=== PATIENT | female | born 1950 | race Caucasian/White ===

== ENCOUNTER 2019-12-15 09:32 | Day surgery (SDC) | payer MEDICARE, SELFPAY ==
[2019-12-06 09:48] VITALS: BMI 24.8
[2019-12-15] VITALS (19 sets, daily range): BP systolic 93–120; BP diastolic 57–76; PULSE 49–87; RESP 9–19; TEMP 36.4–37; O2SAT 94–99; BMI 24.8
--- NOTE | 2019-12-15 | DI.RAD.S_ITS ---
PROCEDURE: XR HIP W PEL IF DONE RT 2V INDICATIONS: RIGHT SABA TECHNIQUE: 4 fluoroscopic views of the hip were acquired. COMPARISON: [facility], [place], XR HIP W PEL IF DONE RT 2V, 12/15/2019, 15:14. FINDINGS: Bones: Right hip total arthroplasties in the expected position. No fractures or dislocations seen. IMPRESSION: Fluoroscopic views of the right total hip arthroplasty. Dictated by: Kuldeep Moscoso M.D. on 12/15/2019 at 16:37 Approved by: Kuldeep Moscoso M.D. on 12/15/2019 at 16:38
--- NOTE | 2019-12-15 06:00 | DI.RAD.S_ITS ---
PROCEDURE: XR HIP W PEL IF DONE RT 2V INDICATIONS: post op films TECHNIQUE: AP pelvis and lateral view of the right hip acquired. COMPARISON: [facility], CR, XR PELVIS WITH BILATERAL LATERAL HIPS, 09/07/2019, 14:13. [facility], CR, XR HIP W PEL IF DONE RT 2V, 12/15/2019, 13:35. FINDINGS: Bones: Patient is status post right hip arthroplasty, with hardware components in expected positions. The hip joint appears congruent. The visualized bony structures appear intact. Note is made of severe left hip joint degeneration. Soft tissues: Overlying postoperative changes are noted. No suspicious soft tissue densities. IMPRESSION: Right hip prosthesis in anatomic alignment. Dictated by: Tay Gramajo M.D. on 12/15/2019 at 17:50 Approved by: Tay Gramajo M.D. on 12/15/2019 at 17:51
[2019-12-15] MEDS: LACTATED RINGERS 1,000 ML 42 ML IV ×2 (10:37→13:48)
[2019-12-15] MEDS: VANCOMYCIN 1,000 MG/200 ML PIGGYBACK 200 MG IV ×2 (10:37→12:57)
[2019-12-15] MEDS: ACETAMINOPHEN 325 MG TABLET 975 MG PO (10:37)
[2019-12-15] MEDS: CELECOXIB 200 MG CAPSULE PO (10:37)
--- NOTE | 2019-12-15 11:33 | P.OP_ITS ---
Operative Date/Time/Diagnoses Date of procedure: 12/15/19 Time of procedure: 11:54 Pre-op diagnosis: Severe right hip osteoarthritis Post-op diagnosis: same Procedure & Clinicians Procedure: Right total hip arthroplasty anterior approach Same procedure as scheduled: Yes Indications: The patient has had progressively worsening right hip pain with radiographic changes consistent with arthritis. Non-operative management has failed and the patient has requested total hip replacement. The risks, benefits and alternatives to surgery were discussed with the patient prior to proceeding. Risks discussed included, but were not limited to, failure to relieve pain, leg length discrepancy, dislocation, stiffness, infection, nerve damage, deep venous thrombosis, pulmonary embolism, stroke, coma, heart attack, permanent paralysis and , as well as the potential need for eventual revision of the prosthetic. Surgeon: Kiana Morales Programmable Logic Controller Assembler: Calli Ball Anesthesia Type: General and Spinal Operative Notes Findings: Severe right hip osteoarthritis Closure Type: primary Specimen(s): none sent Prosthetic devices, grafts, tissues, transplants, or devices: Morales and Nephew 56 mm R3, size 8 stem anthology standard offset, 36 by + 0 Oxinium head, one 15 mm screw Estimated Blood Loss (mL): 250 Blood products transfused: none Procedure in detail: The patient was brought to the operating room. Patient was carefully positioned in the supine position. Time-out was performed and antibiotics were given. Anesthesia was induced. She was positioned in the on the table in order to allow hyperextension of the hip. The right lower extremity was prepped and draped in a standard sterile fashion. An anterior right hip incision was made 1 fingerbreadth lateral to the anterior superior iliac spine and extended distally towards the greater trochanter. Dissection was carried out through skin and subcutaneous tissues. The skin and subcutaneous tissues were carefully injected with Lidocaine with epi. Superficial hemostasis was achieved. The fascia over the tensor fascia mauricio was defined and incised with a knife. Two Allis clamps were used to grasp the fascia. Tensor fascia mauricio was retracted laterally. A gelpi retractor was placed. Dissection was carried out down along the neck. The circumflex vessels were carefully identified and cauterized with the Aqua Mantis. There was good visualization of the femoral neck. A Cobra was placed superior to the neck and the gluteus fibers were carefully stripped from that superior aspect of the capsule. A 2nd retractor was placed along the inferior aspect of the neck. The rectus insertion along the capsule was partially released. A 3rd retractor that was then gently placed over the rim of the acetabulum under the rectus. Capsule was carefully incised and released from the intertrochanteric line circumferentially superior to the mid sagittal line and inferiorly to the mid sagittal line until the lesser trochanter was palpable. A tag stitch was placed both in the superior and inferior limb of the capsular insertion. Along the acetabulum capsule was also released up to the mid sagittal 12:00 position. A portion of the labrum was resected. A saw was used to perform an osteotomy at the level of the intertrochanteric line and the junction of the superior femoral neck leaving approximately 1 finger breath of residual inferior neck above the lesser trochanter. A 2nd cut was made along the femoral neck at the base of the head and a napkin ring of neck was removed. Corkscrew was placed in the femoral head and the head was removed without difficulty. Retractors were then repositioned around the acetabulum. Residual labrum was resected and additional osteophytes were removed. A reamer that was 4 mm below the templated size was placed by hand in the acetabulum and it was reamed to centralize the acetabulum. It was then reamed up to 2 under the templated size and fluoroscopy was brought in to confirm the position of the reaming and depth of reaming. I reamed 1 under the anticipated size and touched the rim with line to line reaming. A trial cup was placed and noted that it was appropriately sized and fluoroscopy confirmed position and depth. The component was open and inserted without difficulty fluoroscopic imaging was used to confirm that the cup had been adequately seated and was well positioned. It was further stabilized with a single 6.5 mm screw. Neutral poly liner was placed. The cup was tested and noted to be stable. Attention was then directed to the femur. The femur was gently hyperextended additional capsular release was performed as needed in order to allow adequate visualization of the proximal femur with elevation of the femur. Patient was placed in a hyperextended slightly adducted position with maximum external rotation. Box osteotome was used to check for any residual neck as well as sclerotic bone along the trochanter. [place] pepper was placed in the femur. Additional broaching was performed. Canal finder was used to determine the alignment of the canal and position. Size 1 broach was placed. The canal was then appropriately broached up to the templated size as long as there was zeny quate stability of the broach and serial advancement of the broach without excessive impingement. Specific attention was directed at avoiding varus attempting to direct the distal aspect of the broach more anteriorly and avoiding excessive anteversion. Trial reduction showed acceptable range of motion, good stability, no posterior impingement, islam of leg length and appropriate lateral shuck. I also hyperflexed the hip and checked that there was no impingement anteriorly and there was good stability with flexion, adduction and internal rotation. Marcaine and Exparel were injected. The stem was placed without difficulty. Repeat trial reduction and x-ray showed acceptable overall position, length, and no evidence of the femoral fracture. Final head was placed. Wound was meticul ously irrigated with normal saline. The hip was reduced and additional Exparel and Marcaine were injected. The capsule was closed with interrupted nonabsorbable sutures. The fascia of the tensor was closed with interrupted and running Vicryl. No drain was placed. Any tensor fascia mauricio muscle that appeared to be contused or injured which was a minimal amount was carefully resected. Capsule around the tensor was injected with Exparel and Marcaine. The skin was closed with barbed stitches for the subcutaneous tissue and skin. We also used surgical glue. The wound was dressed sterilely. Brief Betadine soak was also used and was meticulously irrigated with normal saline. Patient was transferred to recovery room in satisfactory condition. Complications: none Post-operative Condition: stable Disposition: Acute Care Plan for aftercare: The patient will be maintained on a standard total hip replacement protocol with weight bearing as tolerated and anterior hip precautions. The patient will receive Aspirin and sequential compression devices for DVT prophylaxis. The patient will be discharged home when safe for the home environment.
--- NOTE | 2019-12-15 11:33 | PM.PREOP ---
Pre-operative Note Interval Note History & Physical reviewed/Exam performed by Physician: Yes Changes to H&P: No
[2019-12-15] MEDS: CEFAZOLIN 2 GM/100 ML FROZ.PIGGY IV ×2 (12:10→20:56)
[2019-12-15] MEDS: TRANEXAMIC ACID 1,000 MG VIAL 1000 MG INJ (12:20)
--- NOTE | 2019-12-15 12:52 | SUR.OPER ---
Supine on padded [place] table with bilateral legs secured in padded positioning boots and suspended in positioning spars, operative leg in traction per surgeon. Head on one pillow. Arm on non-operative side secured on padded armboard <90 degrees abduction. Arm on operative side padded and resting across chest then secured with tape over sheet. Padded perineal post in place per surgeon.
[2019-12-15] MEDS: BUPIVACAINE LIPOSOME 266 MG/20 ML VIAL INJ (14:29)
[2019-12-15] MEDS: BUPIVACAINE 0.25% W/ EPI 30 ML VIAL 60 ML INJ (14:30)
[2019-12-15] MEDS: hydrOXYzine 50 MG/ML INJ 25 MG IM (15:29)
[2019-12-15] MEDS: HYDROMORPHONE 2 MG INJ IV ×2 (15:29→15:49)
--- NOTE | 2019-12-15 16:06 | SUR.PHASEI ---
Patient A/O. OSORIO's x 4. medicated for c/o pain. Denies nausea and tolerating po.
[2019-12-15] MEDS: IBUPROFEN 400 MG TABLET PO ×2 (17:12→21:02)
[2019-12-15] MEDS: OXYCODONE IR 5 MG TABLET PO ×2 (17:13→21:03)
[2019-12-15] MEDS: LACTATED RINGERS 1,000 ML 125 ML IV (17:14)
--- NOTE | 2019-12-15 19:27 | PC.ADMIT ---
[email or web address] [facility] Admission Note: The patient,Tita Zimmer,69 y/o, was given written information regarding hospital policies, unit procedures and contact persons. 1640: Pt arrived to unit from PACU. A/O, VSS, Pt states pulse always runs slow. Drsg C/D/I. No drains. Medicating per mar for post-op pain. Ambulated to bathroom for void attempt. Steady on feet with fww. Unable to void reattempt again. Oriented to room and call system. Bed alarm placed on for safety. Patient's smoking status: Former smoker. Vital Signs - 8 hr 12/15/19 15:10 12/15/19 15:19 12/15/19 15:25 Temperature 98.6 F Pulse Rate 87 77 68 Respiratory Rate 15 19 11 L Blood Pressure 99/63 96/57 L 103/63 Pulse Oximetry 96 95 94 12/15/19 15:34 12/15/19 15:39 12/15/19 15:44 Temperature Pulse Rate 61 57 L 60 Respiratory Rate 13 10 L 19 Blood Pressure 104/64 102/63 93/57 L Pulse Oximetry 97 95 98 12/15/19 15:45 12/15/19 15:54 12/15/19 16:05 Temperature Pulse Rate 58 L 59 L 56 L Respiratory Rate 9 L 12 13 Blood Pressure 93/57 L 106/64 103/62 Pulse Oximetry 94 99 99 12/15/19 16:14 12/15/19 16:42 12/15/19 17:00 Temperature 97.5 F L Pulse Rate 60 54 L 49 L Respiratory Rate 12 17 Blood Pressure 107/64 105/63 94/60 Pulse Oximetry 98 99 12/15/19 17:30 Temperature Pulse Rate 57 L Respiratory Rate Blood Pressure 109/65 Pulse Oximetry
[2019-12-15] MEDS: ASPIRIN EC 81 MG TABLET PO (21:02)
[2019-12-15] MEDS: ACETAMINOPHEN 325 MG TABLET 650 MG PO (21:02)
[2019-12-15] MEDS: DOCUSATE 100 MG CAPSULE PO (21:02)
[2019-12-16 01:20] VITALS: BP 120/48; PULSE 96; RESP 17; TEMP 36.8; O2SAT 98
[2019-12-16] MEDS: IBUPROFEN 400 MG TABLET PO ×4 (01:22→14:42)
[2019-12-16] MEDS: LACTATED RINGERS 1,000 ML 125 ML IV (01:43)
--- NOTE | 2019-12-16 02:05 | PC.NURSE ---
Addendum entered by Geetha Crowell R.N. 12/16/19 06:37: Additional note: when ambulating earlier states she feels as though the right leg is now longer than left leg Addendum entered by Geetha Crowell R.N. 12/16/19 06:19: Medicated earlier with scheduled Ibuprofen and now states pain has worsened and currently 6/10; medicated with Oxycodone and assisted to reposition onto right side. Original Note: Patient is alert and oriented. Breath sounds CTA with RA sat of 98%. HRR. Denies nausea. BT present and states she is passing flatus. Has some dribbling/incontinence when standing up so provided with peripad; states dribbling is a chronic problem but denies dysuria, frequency or urgency. Dressing to anterior right hip CDI. CMS intact but only able to lift right leg off bed slightly and with effort. States pain was 2/10 upon waking but increased to 6/10 after being out of bed; declined narcotic pain medication and would only take the scheduled Ibuprofen; provided with ice pack. Reviewed anterior hip precautions with patient. Able to move self in bed and is up with walker and SBA although needs reminders to slow down when walking. Wearing bilateral calf SCD's. Fall risk score is moderate; bed alarm is activated for safety.
[2019-12-16] MEDS: CEFAZOLIN 2 GM/100 ML FROZ.PIGGY IV (04:38)
[2019-12-16 05:00] VITALS: BP 92/50; PULSE 69; RESP 17; TEMP 36.6; O2SAT 97
[2019-12-16] MEDS: OXYCODONE IR 5 MG TABLET PO ×3 (06:15→14:42)
[2019-12-16 06:26] LABS: Hematocrit 30.2 % (36-46)
--- NOTE | 2019-12-16 08:33 | P.PN_ITS ---
Subjective Subjective Date Patient Seen: 12/16/19 Time Patient Seen: 07:30 Interval history: POD #[address] Morales. No acute events overnight. Patient states she feels very tired. Complains of mild-moderate pain in her right hip. Is voiding without difficulty or assistance. Ambulating well with walker 1- assist. Denies fever, chills, shortness of breath, dry cough, chest pain Exam Vital Signs (past 8 hours): - 12/16/19 01:20 12/16/19 05:00 Temperature 98.3 F 97.8 F Pulse Rate 96 H 69 Respiratory Rate 17 17 Blood Pressure 120/48 L 92/50 L Pulse Oximetry 98 97 Oxygen Delivery Method Room Air Oxygen Flow Rate 0 Narrative Exam Narrative: 69 year old female is laying comfortably in bed, in no apparent distress. A&Ox3. Dressing CDI, SCDs in place, IV in place. Able to actively dorsiflex/plantar flex BL. Calves warm, soft, compressible, non tender to palpation BL. Sensory function grossly intact to light touch in LE BL. Dorsalis pedis 1+ BL. Objective Labs Result Diagrams: 12/16/19 06:00 Labs: Laboratory Results - last 24 hr 12/16/19 06:00 Hgb 10.0 L Hct 30.2 L Assessment & Plan Post-op Postoperative Procedures: Procedures Operation Date: 12/15/19 11:45 Actual Procedures Side Surgeon p Total Hip Arthroplasty/Anterior Approach Right Kiana Morales MD Postoperative day: 1 Postoperative status: doing well Postoperative plan: discharge Postoperative plan narrative: Patient to discharge home pending PT clearance Continue current pain management SCDs and ASA 81mg BID for DVT prophylaxis Follow up w clinic in 2 weeks Begin outpatient PT in 1 week Time Spent With Patient Time with patient: less than 15 minutes
[2019-12-16 08:38] VITALS: BP 79/50; PULSE 67; RESP 18; TEMP 37.1; O2SAT 98
[2019-12-16 08:42] VITALS: BP 87/55; PULSE 62
--- NOTE | 2019-12-16 08:53 | PC.NURSE ---
Addendum entered by Shaylee Gamez R.N. 12/16/19 12:44: NS 500ml bolus started at 0950. Now completed, Pt wanted to sleep, BP rechecked manually by another RN at 1140 for 94/55. Will monitor. Addendum entered by Shaylee Gamez R.N. 12/16/19 09:12: Per Jatinder, PT, pt ambulated in [place] short distance, felt dizzy and nauseated, BP 80's over 50's, pt back to bed and stated feeling better once in bed. 500 ml NS bolus will be given as pt was symptomatic Addendum entered by Shaylee Gamez R.N. 12/16/19 09:01: pt states she normal has a lower BP and pulse when at home. Original Note: Day Shift- Pt A&OX4, able to make needs known using call light. Rates no pain with rest, 3/10 with movement to right hip surgery site. Right anterior hip aquacel dressing CDI. PPP, Pt denies numbness of tingling. BP taken while pt in bed in supine, HOB slightly elevated. BP taken on right arm, cuff size fits well. BP 79/50, pulse 67. Second reading taken 4 mins apart was 87/55, pulse 62. Spoke with MARYA Starks at 0845 and made aware. If pt asymptomatic while working with PT, give NS 500ml bolus, otherwise monitor, encourage po fluids.
[2019-12-16] MEDS: ACETAMINOPHEN 325 MG TABLET 650 MG PO ×2 (09:19→14:43)
[2019-12-16] MEDS: ASPIRIN EC 81 MG TABLET PO (09:19)
[2019-12-16] MEDS: SODIUM CHLORIDE 0.9% 500 ML 1000 ML IV (09:20)
[2019-12-16] MEDS: DOCUSATE 100 MG CAPSULE PO (09:20)
--- NOTE | 2019-12-16 10:05 | PT.IIE ---
Current Diagnoses Bilateral primary osteoarthritis of hip (12/15/19) Surgery Performed Operation Date: 12/15/19 11:45 Actual Procedures p Total Hip Arthroplasty/Anterior Approach(Right) - Kiana Morales MD Surgical History (Last Updated 12/06/19 @ 10:16 by Maritza Mcgowan RN) History of partial hysterectomy (Acute) Hx of arthroscopy of right knee (Acute) Hx of dilation and curettage (Acute) Hx of oral surgery (Acute) Medical History (Last Updated 12/06/19 @ 10:17 by Maritza Mcgowan RN) Chronic pain (Acute) Hypotension (Acute) Incontinence in female (Acute) Incontinence of bowel (Acute ~2018) Open fracture of left femur (Acute ~1969) Psoriasis (Acute) Skipped beats (Acute) TMJ (temporomandibular joint syndrome) (Acute) Trigger finger of right hand (Acute) Physical Therapy Inpatient Evaluation/Re-Eval M1 PT/OT-IP Prior Functional Status Start: 12/16/19 08:15 Freq: NEEDED Status: Active Protocol: Document 12/16/19 08:40 (Rec: 12/16/19 10:05 [id number]) Medical Review Prior Functional Status Medical History Reviewed Yes Diet/Fluid Consistency Regular Communication no deficits noted. Able to make needs known Mobility and Gait Independent with mobility at home and community without AD. 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 She also has increased pain for long walks. Activities of Daily Living and IADL's independent with ADLs and IADLs. But do have to use cart for support during grocery shop. She also drives independently. Social History Household Members friend(s) Living Arrangements House Number of Floors (Floors) 3 or More Floors Number of Stairs To Enter/Railing? 3 RUPESH without rails 15 steps in total to 2nd floor with R railing. Pt usually lives on 2nd floor but she can stay on mainfloor in the guest room with bathroom and bedroom access. Home Environment Standard Height Toilet,Walk in Shower Home Equipment Front Wheel Walker,Straight Cane,Raised Toilet Seat w/ Armrests,Behavioral Health Tech,Grab Bars Near Toilet Employment Status Retired Additional Social History Comment Pt lives alone in [facility] but has property mate that comes in and check on her daily. She stated he will be very helpful to assist . Pt also managed to have friends to come in 6 nights/ week to assist as needed. M2 PT-IP Current Condition Start: 12/16/19 08:15 Freq: NEEDED Status: Active Protocol: Document 12/16/19 08:40 (Rec: 12/16/19 10:05 [id number]) Physical Therapy Current Condition Current Condition Evaluation Date 12/16/19 Treatment Diagnosis R SABA (ant approach), difficulty in walking Onset Date 12/15/19 Precautions Anterior Hip Precautions No Hip Extension,No Hip External Rotation Weight Bearing Status Weight Bearing Status Weight Bear as Tolerated M3 PT-IP Subjective Start: 12/16/19 08:15 Freq: NEEDED Status: Active Protocol: Document 12/16/19 08:40 (Rec: 12/16/19 10:05 [id number]) Subjective Physical Therapy Visit Type Type Initial Evaluation Visit Start Time 08:40 Visit Stop Time 09:00 Total Visit Minutes 20 Notes Per RN Shaylee, pt experiencing low BP 80s/50s since this morning Number of SCRAPER MEAT Visits 0 Physical Therapy Visit Comments Patient Comments I can move pretty well now. Patient Goals To return home. Therapy Pain Assessment Pain When Pain Assessed During Mobility Pain Present Pain Present Pain Reported Location Right Hip Intensity 3 Scale Used Numeric (1 - 10) Description Aching Pain Management Techniques Apply Cold,Timing of Activity with Medications M4 PT-IP Mobility and Gait Start: 12/16/19 08:15 Freq: NEEDED Status: Active Protocol: Document 12/16/19 08:40 (Rec: 12/16/19 10:05 [id number]) PT-Bed Mobility Assessment Supine to Sit Supine to Sit Standby Assistance Sit to Supine Sit to Supine Standby Assistance Scooting Scooting to Edge of Bed Standby Assistance Scooting Up and Down in Bed Standby Assistance PT-Transfer Assessment Sit to and From Stand Sit to and from Stand Standby Assistance,Use of Upper Extremities Equipment Transfer Assistive Device Gait Belt,Front Wheeled Walker Orthotic/Prosthetic Devices or Brace: No Transfers Transfer Destination Bed,Chair,Toilet Transfer Technique amb with FWW Transfer Ability Level of Assist Standby Assistance,Use of Upper Extremities Comments Mobility Comments Pt was in bathroom with FARMWORKER FRUIT upon PT arrival. FARMWORKER FRUIT hands off pt to this PT. Pt was able to stand up from toilet with FWW safely. She then amb to bedside chair and sat down. BP at 87/55 but asymptomatic. Dis with pt if she would like to rest in bed / attempt mobilization and she decided to go for a short walk. Pt then got up with SBA and FWW. She was well aware of her precautions and able to amb to hallway and attempt stair climbing. She did c/o slight dizziness after stair climbing and decided to return to bed with PT SBA. Pt was able to sit back at EOB on L side and pivot her RLE slowly to bed, followed by scooting herself to center of the bed. SCD is on and bed alarm activated. Pt c/o slight nausea and her BP cont stays at 87/55. Notifed ELLIS June. Gait Assessment Gait Gait Assistance Required: Standby Assistance Distance (Feet) 25 Able to Maintain Weight Bearing Status Yes During Gait Assistive Devices Assistive Device Gait Belt,Front Wheeled Walker Orthotic/Prosthetic Devices or Brace: No Gait Deviations General Gait Pattern Antalgic,Decreased Stride Length,Decreased Feet Clearance Factors Limiting Gait Function Factors Limiting Gait Function Decreased Activity Tolerance, Decreased Strength,Limited Range of Motion,Pain Comments Gait Comments see mobility section Stair Climbing Assessment Evaluation Level of Assist On Stairs Contact Guard Assistance Devices Stair Climbing Assistive Devices Left Railing,Right Railing Technique/Endurance Stair Climbing Direction Ascend and Descend Stair Climbing Technique Step to Step Number of Steps Climbed 3 Query Text: Stair Climbing Set # Repetitions (reps) 1 Comments Stair Climbing Comments Pt used B rails for stair climbing safely with CGA. She is aware of climbing technique to lead with LLE for ascend; lead with RLE for descend. Pt did not show signs of LOB but did report increased dizziness after. PT-Balance Assessment Sitting Balance and Reactions Static Sitting Balance Ability Normal Dynamic Sitting Balance Ability Normal Standing Balance and Reactions Static Standing Balance Ability Normal Dynamic Standing Balance Ability Good Device Used FWW M5 PT-IP Objective Assessments Start: 12/16/19 08:15 Freq: NEEDED Status: Active Protocol: Document 12/16/19 08:40 (Rec: 12/16/19 10:05 [id number]) Orientation Orientation/Cognition Level of Alertness Alert Orientation Name,Age,Birthday,Month,Date, Year,Day of Week,Place, Situation Language Function Ability No Deficits Noted Safety Awareness Understands Safety Issues Gross Range of Motion Upper Extremity ROM Assessment Within Functional Limits Lower Extremity ROM Assessment Right Impaired Strength Upper Extremity Strength Assessment Within Functional Limits Lower Extremity Strength Assessment Right Impaired Hip 4-/5 Knee 4+/5 Coordination Assessment Gross Coordination Gross Coordination WNL Sensation Assessment Sensation Gross Sensation WNL Muscle Tone Muscle Tone WNL Yes M6 PT-IP Treatment Start: 12/16/19 08:15 Freq: NEEDED Status: Active Protocol: Document 12/16/19 08:40 (Rec: 12/16/19 10:05 [id number]) Physical Therapy Treatment Exercises Exercises Quad Sets,Heel Slides Education Education Provided Precautions,Weight Bearing Status,Post-Op Packet,Safety M7 PT-IP Assessment and Plan Start: 12/16/19 08:15 Freq: NEEDED Status: Active Protocol: Document 12/16/19 08:40 HH (Rec: 12/16/19 10:05 [id number]) PT Summary Assessment and Plan Potential Rehabilitation Potential Excellent Status of Condition at Evaluation Stable Summary Impairments Pain,ROM,Strength,Balance,Bed Mobility,Transfers,Gait, Activity Tolerance Assessment Summary This is a low complexity evaluation for this 69yo female s/p POD2 R SABA ( anterior approach). PLOF= independent for all mobility and ADLs/IADLs but increased time taken for bending movements, getting up from chair and long walks d/t pain. CLOF= pt has hypotension at 80s/50s during session but became symptomatic after stair climbing. She was overall SBA for all mobility and CGA for stair climbing but she did feel nausea and increased dizziness after climbing stair . She did feel better after returning back to bed. Notified ELLIS June and she decided to provide Bolus. Pt currently is not safe to d/c d /t hypotension, but expect her to complete rehab goals within 1-2 days and d/c to home with friends' assistance. Goals Bed Mobility Goal Standby Assistance Transfer Goal Standby Assistance,Front Wheeled Walker Gait Goal Standby Assistance,Front Wheel Walker Gait Distance 200 Other Goals 3 RUPESH with GERIATRIC PERSONAL CARE AIDE, but no rails Days to Meet Goals 2 Frequency of Treatment Frequency Of Treatment Twice a Day Treatment Plan Physical Therapy Treatment Plan Bed Mobility Training,Transfer Training,Gait Training, Therapeutic Exercise,Balance Retraining,Post Op Education, Discharge Planning,Hot or Cold Pack,Neuromuscular Re-ed Other Recommendations and Next Treatment check BP Focus review precautions stair climbing without rails Recommendations To Nursing Amount of Assist Needed 1 Person Assist Discharge Recommendations PT Discharge Recommendations Home with Assistance, Outpatient PT Transportation Needs at Discharge Private Vehicle
--- NOTE | 2019-12-16 11:30 | CM.DANOTE ---
DCP Assessment: EMR Reviewed: Patient is a 69 yr old female who was admitted for a Rt SABA preformed by Dr. Morales. CM/RN met with patient at the bedside and explained role. Patient was alert and oriented x3 during CM/RN visit. Patient currently lives alone in 2 story home. Patients will have friends coming down to stay with her for the next week or more if she needs it. Patient is Independant at base line with all ADL's and drives. patients Neighbor Ryder Umana will be driving patient home at D/C. DME: Patient has FWW, Cane, Elevated toilet seat and grab bars. I: Medicare and AARP Plan: D/C home with friends and OP PT. No identified D/C planning needs noted. CM will follow patient to assist with any new D/C planning needs that may arise. Arcelia Morales RN Discharge Planning/Care Management Advanced directive, confirm from FAMILY Start: 12/15/19 17:47 Freq: Q24H Status: Active Protocol: Document 12/15/19 16:57 GMP (Rec: 12/15/19 19:47 GMP [id number]) Advance Directive, confirm on record Time 16:57 Person contacted pt Copy received No CM Discharge Assessment Start: 12/16/19 11:29 Freq: Status: Active Protocol: Document 12/16/19 11:29 HS (Rec: 12/16/19 11:30 HS [id number]) Discharge Planning Assessment Assigned Security Management Specialist Arcelia Morales RN DPOA/Assigned Designee Name Ryder Umana (friend) Advance Directives? Yes: Currently working on Advance Directives on File No History Provided By Patient,Medical Record Has Patient been admitted in last 30 No days? Prior Living Arrangements House Household Members friend(s) Type of transporation used prior to Drives own vehicle admit Independent with ADL's Yes Is patient alert and oriented? Yes Caregiver for Another No DME Already Rented / Owned Elevated Toilet Seat,FWW / Walker,Cane Patient/Family Preference OP PT Therapy Barriers to Discharge No Discharge Plan Home Referrals Initiated None needed Whiteboard Updated in Patient Room with Yes name and ext. # of Security Management Specialist Review Status In Process Next Review Type Continued Stay Review Pre-Anesthesia Assessment Start: 12/06/19 09:48 Freq: Status: Complete Protocol: Document 12/06/19 09:48 CAB (Rec: 12/06/19 10:43 CAB [id number]) Pre-Anesthesia Assessment PAC Comment Surgeon H&P not available at time of assess. Preferred Name Garrick Patient Information Reviewed Via Phone Assessment Assessment Completed With Patient Diagnostic Results CBC,Urinalysis Comment Pt states completed, surgeon has, CBC/UA only available at present Primary Care Provider Hernan Wiggins Seen Specialist in Last 12 Months Yes Specialist Seen Orthopedist,Catalytic Converter Operator Helper Primary Language Bruneian Camera Operator Required No Height 167.64 cm Weight 69.853 kg Body Mass Index (BMI) 24.8 Hearing Ability Normal Visual Assist Contacts,Glasses Dentition Type Dental Implants Barriers to Learning None Other Aids No Hx Anesthesia Reactions Yes: Post-op nausea Hx Family Anesthesia Reaction No Hx Malignant Hyperthermia No Hx Blood Transfusions Yes: s/p femur fx 1970 Hx Blood Transfusion Reaction No Anesthesia Review Requested No: Would to discuss having spinal alcohol intake current alcohol intake frequency holidays/special occasions only Smoking Status Former smoker Tobacco type cigarettes how long ago did patient quit smoking Quit 1982 Substance Use Type marijuana Comment Pt advised not to smoke 24 hours prior to surgery Pain Present Pain Reported Musculoskeletal Symptoms Abnormal Gait,Back Pain, Difficulty Walking,Joint Pain, Muscle Spasms History of Falling (Recent or History of No ) Patient is completely paralyzed or No completely immobile Mental Status Oriented to own ability Is patient on oxygen? No Does patient have HUYNH/SOB Yes: Pt feels r/t deconditioning Hx Sleep Apnea No Currently Taking a Beta [place] No Can You Climb a Flight of Stairs Without No: Pt feels r/t SOB deconditioning Hx Chest Pain No Hx SOB Yes: Pt feels r/t deconditioning Hx Syncope or Dizziness No Anti-Coagulant Therapy No Has a Research Manufacturing Operator No Cardiac Testing No Hx Pacemaker/ICD No Pacemaker Rep Required? No Cardiac Clearance Received Not Applicable Diet Type At Home Vegetarian dysphagia No: Avoids wheat Gastrointestinal Symptoms Fecal Incontinence Bladder Pattern Incontinent,Urgency Urinary Catheter Present No Hx Urinary Self Catheterization No Diabetes No Patient No Lactating No Hx Drug Resistant Organism No Presence of External or Internal Medical Yes: Dental implants Devices Meyer exposure No Have you had any close contact with No someone diagnosed with NOVEL CORONAVIRUS ? Have you traveled outside the [facility] in the last 30 days? Marital Status Single Lives With friend(s) Prior Living Arrangements House Number of Floors (Floors) 3 or More Floors Support System Friend(s) Does the Patient Have Assistance After Yes: Friends will stay w/pt to Surgery assist w/care x 6 days Patient Discharge Plan Description Return Home Comment Pt not advised on length of stay per surgeon Feels Safe in Current Environment Yes Been Physically Hurt or Threatened By a No Person in Current Environment Do you have thoughts of harming yourself None or others? Are you currently considering suicide? No Do you have a plan to hurt yourself or No Plan others? Do You Have Any Spiritual Beliefs That No May Affect Your HC Choices? Do You Have Any Cultural Practices That No May Affect Your HC Choices? Who Can We Speak to About Patient's Care Family, friends Identifying Code for Release of Patient Declines to issue Information Health Care Proxy/Next of Kin Roseannaduyen Miranda (Friend) Health Care Proxy Emergency Contact Name Ariana Lynn (friend) Emergency Contact Phone Number Pt to update dos Advance Directives? Yes: Currently working on Advance Directives on File No Requested Patient Bring Advanced Yes Directives DOS Power of National Accounts Recruiter Yes Power of National Accounts Recruiter Name Roseanna Miranda (Friend) Power of National Accounts Recruiter PAC Instructions Do not shave/clip surgical site,Durable medical equipment ,Medications to take/avoid, Nasal antibiotic,No ETOH/ petroleum product on skin DOS, NPO,Post-op transportation,Pre -surgical wash,Sturdy shoes/ comfortable clothes,Do not bring valuables and remove jewelry
[2019-12-16 11:40] VITALS: BP 94/55
[2019-12-16 13:30] VITALS: BP 112/68; PULSE 67; RESP 16; TEMP 37.4; O2SAT 96
--- NOTE | 2019-12-16 13:42 | PT.IPTN ---
Current Diagnoses Bilateral primary osteoarthritis of hip (12/15/19) Surgery Performed Operation Date: 12/15/19 11:45 Actual Procedures p Total Hip Arthroplasty/Anterior Approach(Right) - Kiana Morales MD Physical Therapy Treatment Note M2 PT-IP Current Condition Start: 12/16/19 08:15 Freq: NEEDED Status: Active Protocol: Document 12/16/19 08:40 HH (Rec: 12/16/19 10:05 HH [id number]) Physical Therapy Current Condition Current Condition Evaluation Date 12/16/19 Treatment Diagnosis R SABA (ant approach), difficulty in walking Onset Date 12/15/19 Precautions Anterior Hip Precautions No Hip Extension,No Hip External Rotation Weight Bearing Status Weight Bearing Status Weight Bear as Tolerated M3 PT-IP Subjective Start: 12/16/19 08:15 Freq: NEEDED Status: Active Protocol: Document 12/16/19 13:00 HH (Rec: 12/16/19 13:42 HH [email or web address]) Subjective Physical Therapy Visit Type Type Treatment Note Visit Start Time 13:00 Visit Stop Time 13:19 Total Visit Minutes 19 Notes Per RN, pt's BP reading was normal by using manual BP cuff Physical Therapy Visit Comments Patient Comments I just woke up and i feel better now. Therapy Pain Assessment Pain When Pain Assessed During Mobility Pain Present Pain Present Pain Reported Location Right Hip Intensity 3 Scale Used Numeric (1 - 10) Description Aching Pain Management Techniques Apply Cold,Timing of Activity with Medications M4 PT-IP Mobility and Gait Start: 12/16/19 08:15 Freq: NEEDED Status: Active Protocol: Document 12/16/19 13:00 HH (Rec: 12/16/19 13:42 HH [id number]) PT-Bed Mobility Assessment Supine to Sit Supine to Sit Standby Assistance Sit to Supine Sit to Supine Standby Assistance Scooting Scooting to Edge of Bed Standby Assistance Scooting Up and Down in Bed Standby Assistance PT-Transfer Assessment Sit to and From Stand Sit to and from Stand Standby Assistance,Use of Upper Extremities Equipment Transfer Assistive Device Gait Belt,Front Wheeled Walker Orthotic/Prosthetic Devices or Brace: No Transfers Transfer Destination Bed,Chair,Toilet Transfer Technique amb with FWW Transfer Ability Level of Assist Standby Assistance,Use of Upper Extremities Comments Mobility Comments Pt was in bed upon PT arrival. BP at 117/72 manually. She supine to long sit with SBA and scooted towards eOB on R side. She then stood up and amb with FWW to bathroom and safely transfer herself. She was able to stand up unsupportedly afterwards for pericare. Pt then amb to hallway for stair climbing training and returned to chair . BP at 112/68 manually. No discomfort noted. Gait Assessment Gait Gait Assistance Required: Standby Assistance Distance (Feet) 200 Able to Maintain Weight Bearing Status Yes During Gait Assistive Devices Assistive Device Gait Belt,Front Wheeled Walker Orthotic/Prosthetic Devices or Brace: No Gait Deviations General Gait Pattern Antalgic,Decreased Stride Length,Decreased Feet Clearance Factors Limiting Gait Function Factors Limiting Gait Function Decreased Activity Tolerance, Decreased Strength,Limited Range of Motion,Pain Comments Gait Comments Pt amb approx 200 ft [facility] with mild antalgic gait. She only reported soreness but denied increased pain. No signs of LOB Stair Climbing Assessment Evaluation Level of Assist On Stairs Contact Guard Assistance, Minimal Assistance Devices Stair Climbing Assistive Devices None Technique/Endurance Stair Climbing Direction Ascend and Descend Stair Climbing Technique Step to Step Number of Steps Climbed 3 Stair Climbing Set # Repetitions (reps) 1 Comments Stair Climbing Comments Pt use therapist's BOWLING ALLEY ATTENDANT on R side to ascend and descend. Pt performed slowly but safely and steady. Educated her to have her friend Bell and other friend that lives in the same property to assist when she arrives home. M5 PT-IP Objective Assessments Start: 12/16/19 08:15 Freq: NEEDED Status: Active Protocol: Document 12/16/19 08:40 HH (Rec: 12/16/19 10:05 [id number]) Orientation Orientation/Cognition Level of Alertness Alert Orientation Name,Age,Birthday,Month,Date, Year,Day of Week,Place, Situation Language Function Ability No Deficits Noted Safety Awareness Understands Safety Issues Gross Range of Motion Upper Extremity ROM Assessment Within Functional Limits Lower Extremity ROM Assessment Right Impaired Strength Upper Extremity Strength Assessment Within Functional Limits Lower Extremity Strength Assessment Right Impaired Hip 4-/5 Knee 4+/5 Coordination Assessment Gross Coordination Gross Coordination WNL Sensation Assessment Sensation Gross Sensation WNL Muscle Tone Muscle Tone WNL Yes M6 PT-IP Treatment Start: 12/16/19 08:15 Freq: NEEDED Status: Active Protocol: Document 12/16/19 08:40 HH (Rec: 12/16/19 10:05 [id number]) Physical Therapy Treatment Exercises Exercises Quad Sets,Heel Slides Education Education Provided Precautions,Weight Bearing Status,Post-Op Packet,Safety M7 PT-IP Assessment and Plan Start: 12/16/19 08:15 Freq: NEEDED Status: Active Protocol: Document 12/16/19 13:00 (Rec: 12/16/19 13:42 [id number]) PT Summary Assessment and Plan Potential Rehabilitation Potential Excellent Status of Condition at Evaluation Stable Summary Impairments Pain,ROM,Strength,Balance,Bed Mobility,Transfers,Gait, Activity Tolerance Progress Towards Goals Safe For Discharge Assessment Summary Pt shows improved mobility this session. BP stays at 110s / 70s with manual assessement. Pt denies dizziness/ increased pain. Recommended pt to have her friend Bell and other friend that lives in the same property to assist pt for steps climbing once she got home. Pt is safe to be d/c home with assistance as needed. Pt reports she will participate either outpatient PT or have her other friend who is PT to come visit her. Frequency of Treatment Frequency Of Treatment Discharge Recommendations To Nursing Amount of Assist Needed Standby Assistance Discharge Recommendations PT Discharge Recommendations Home with Assistance, Outpatient PT Transportation Needs at Discharge Private Vehicle
== END 2019-12-16 15:29 | disposition home or self-care (01) ==
LOC: AC 12-16 09:31 → OR 12-18 08:46
PROVIDERS: PCP Family Medicine; Referring Provider Family Medicine; Visit Provider Orthopaedic Surgery
PROC: (CPT 27130; principal; 2019-12-15 11:45)
DX: M16.11 Unilateral primary osteoarthritis, right hip (principal); I95.9 Hypotension, unspecified
CPT/HCPCS: 27130; 36415; 73502; 76000; 85014; 85018; 97116; 97161; C1776; C9290; J0171; J0690; J1100; J1170; J2250; J2405; J2704; J3010; J3410

== ENCOUNTER 2020-07-24 11:34 | Day surgery (SDC) | payer MEDICARE, SELFPAY ==
[2019-12-15 17:44] VITALS: BMI 24.8
[2020-07-17 12:46] VITALS: BMI 23.8
[2020-07-24] VITALS (16 sets, daily range): BP systolic 92–115; BP diastolic 45–74; PULSE 59–79; RESP 10–20; TEMP 36.2–36.7; O2SAT 90–100; BMI 23.8
--- NOTE | 2020-07-24 | DI.RAD.S_ITS ---
PROCEDURE: [id number] W PEL IF PERFORMED INDICATIONS: INTRA OP LEFT HIP TECHNIQUE: 9 intraoperative fluoroscopic images of pelvis and left hip COMPARISON: [facility], [facility], XR HIP W PEL IF DONE RT 2V, 12/15/2019, 15:14. FINDINGS: Intraoperative fluoroscopic images shows left total hip arthroplasty with anatomic hip alignment. IMPRESSION: Fluoro guidance was provided intraoperatively for left total hip arthroplasty. Dictated by: Damian Menjivar M.D. on 07/24/2020 at 16:33 Approved by: Damian Menjivar M.D. on 07/24/2020 at 16:35
--- NOTE | 2020-07-24 | DI.RAD.S_ITS ---
PROCEDURE: XR HIP W PEL IF DONE LT 2V INDICATIONS: TOTAL LEFT HIP TECHNIQUE: 2 view(s) of the hip acquired. [id number], 15:14. FINDINGS: Bones: Patient is status post left hip arthroplasty, with hardware components in expected positions. The hip joint appears congruent. The visualized bony structures appear intact. Stable right total hip arthroplasty. Soft tissues: Overlying postoperative changes are noted. No suspicious soft tissue densities. IMPRESSION: Satisfactory appearance of the left total hip arthroplasty. Dictated by: Kuldeep Moscoso M.D. on 07/24/2020 at 17:50 Approved by: Kuldeep Moscoso M.D. on 07/24/2020 at 17:51
[2020-07-24] MEDS: LACTATED RINGERS 1,000 ML 42 ML IV ×3 (12:29→17:58)
[2020-07-24] MEDS: VANCOMYCIN 1,000 MG/200 ML PIGGYBACK 200 MG IV (12:30)
[2020-07-24] MEDS: ACETAMINOPHEN 325 MG TABLET 975 MG PO (12:30)
[2020-07-24] MEDS: PREGABALIN 75 MG CAPSULE PO (12:32)
[2020-07-24] MEDS: CELECOXIB 200 MG CAPSULE PO (12:32)
--- NOTE | 2020-07-24 13:32 | PM.PREOP ---
Pre-operative Note COVID-19 COVID-19 status: Negative Interval Note History & Physical reviewed/Exam performed by Physician: Yes Changes to H&P: No
--- NOTE | 2020-07-24 13:32 | PM.OP.1 ---
Operative Date/Time/Diagnoses Date of procedure: 07/24/20 Time of procedure: 13:32 Pre-op diagnosis: left hip OA Post-op diagnosis: same Procedure & Clinicians Procedure: Left total hip arthroplasty Same procedure as scheduled: Yes Indications: The patient has had progressively worsening left hip pain with radiographic changes consistent with arthritis. Non-operative management has failed and the patient has requested total hip replacement. The risks, benefits and alternatives to surgery were discussed with the patient prior to proceeding. Risks discussed included, but were not limited to, failure to relieve pain, leg length discrepancy, dislocation, stiffness, infection, nerve damage, deep venous thrombosis, pulmonary embolism, stroke, coma, heart attack, permanent paralysis and , as well as the potential need for eventual revision of the prosthetic. Surgeon: Kiana Morales Mass Spectroscopist: Hilton Schultz Anesthesia Type: General and Spinal Operative Notes Findings: severe left hip osteoarthritis, good stability, adequate bone Closure Type: primary Specimen(s): none sent Prosthetic devices, grafts, tissues, transplants, or devices: Morales and Nephew 56 mm R3 cup, size 8 standard offset anthology, +0 head, 1 screw 6.5 15mm Estimated Blood Loss (mL): 250 Blood products transfused: none Procedure in detail: The patient was brought to the operating room. Patient was carefully positioned in the supine position. Time-out was performed and antibiotics were given. Anesthesia was induced. She was positioned in the on the table in order to allow hyperextension of the hip. The left lower extremity was prepped and draped in a standard sterile fashion. An anterior left hip incision was made 1 fingerbreadth lateral to the anterior superior iliac spine and extended distally towards the greater trochanter. Dissection was carried out through skin and subcutaneous tissues. The skin and subcutaneous tissues were carefully injected with Marcaine. Superficial hemostasis was achieved. The fascia over the tensor fascia mauricio was defined and incised with a knife. Two Allis clamps were used to grasp the fascia. Tensor fascia mauricio was retracted laterally. A gelpi retractor was placed. Dissection was carried out down along the neck. The circumflex vessels were carefully identified and cauterized with the Aqua Mantis. There was good visualization of the femoral neck. A Cobra was placed superior to the neck and the gluteus fibers were carefully stripped from that superior aspect of the capsule. A 2nd retractor was placed along the inferior aspect of the neck. The rectus insertion along the capsule was partially released. A 3rd retractor that was then gently placed over the rim of the acetabulum under the rectus. Capsule was carefully incised and released from the intertrochanteric line circumferentially superior to the mid sagittal line and inferiorly to the mid sagittal line until the lesser trochanter was palpable. A tag stitch was placed both in the superior and inferior limb of the capsular insertion. Along the acetabulum capsule was also released up to the mid sagittal 12:00 position. A portion of the labrum was resected. A saw was used to perform an osteotomy at the level of the intertrochanteric line and the junction of the superior femoral neck leaving approximately 1 finger breath of residual inferior neck above the lesser trochanter. A 2nd cut was made along the femoral neck at the base of the head and a napkin ring of neck was removed. Corkscrew was placed in the femoral head and the head was removed without difficulty. Retractors were then repositioned around the acetabulum. Residual labrum was resected and additional osteophytes were removed. A reamer that was 4 mm below the templated size was placed by hand in the acetabulum and it was reamed to centralize the acetabulum. It was then reamed up to 2 under the templated size and fluoroscopy was brought in to confirm the position of the reaming and depth of reaming. I reamed 1 under the anticipated size. A trial cup was placed and noted that it was appropriately sized and fluoroscopy confirmed position and depth. The component was open and inserted without difficulty fluoroscopic imaging was used to confirm that the cup had been adequately seated and was well positioned. it was further stabilized with a single screw. Neutral poly liner was placed. The cup was tested and noted to be stable. Attention was then directed to the femur. The femur was gently hyperextended additional capsular release was performed as needed in order to allow adequate visualization of the proximal femur with elevation of the femur. Patient was placed in a hyperextended slightly adducted position with maximum external rotation. Box osteotome was used to check for any residual neck as well as sclerotic bone along the trochanter. There was some slight attenuation of the anterior neck which did not extend into the calcar. [place] pepper was placed in the femur. Additional broaching was performed. Canal finder was used to determine the alignment of the canal and position. Size 1 broach was placed. The canal was then appropriately broached up to the templated size as long as there was adequate stability of the broach and serial advancement of the broach without excessive impingement. Specific attention was directed at avoiding varus attempting to direct the distal aspect of the broach more anteriorly and avoiding excessive anteversion. Trial reduction showed acceptable range of motion, good stability, no posterior impingement, orthodoxy of leg length and appropriate lateral shuck. I also hyperflexed the hip and checked that there was no impingement anteriorly and there was good stability with flexion, adduction and internal rotation. Marcaine and Exparel were injected.. The stem was placed without difficulty. Repeat trial reduction and x-ray showed acceptable overall position, length, and no evidence of the femoral fracture. Final head was placed. Wound was meticulously irrigated with normal saline. The hip was reduced and additional Exparel and Marcaine were injected. Bone graft was also packed along the anterior neck. The capsule was closed with interrupted nonabsorbable sutures. The fascia of the tensor was closed with interrupted and running Vicryl. No drain was placed. Any tensor fascia mauricio muscle that appeared to be contused or injured which was a minimal amount was carefully resected. Capsule around the tensor was injected with Exparel and Marcaine. The skin was closed with barbed stitches for the subcutaneous tissue and skin. We also used surgical glue. The wound was dressed sterilely. Brief Betadine soak was also used and was meticulously irrigated with normal saline. Patient was transferred to recovery room in satisfactory condition. Complications: none Post-operative Condition: stable Disposition: Acute Care Plan for aftercare: The patient will be maintained on a standard total hip replacement protocol with weight bearing as tolerated and anterior hip precautions. The patient will receive Aspirin and sequential compression devices for DVT prophylaxis. The patient will be discharged home when safe for the home environment.
[2020-07-24] MEDS: CEFAZOLIN 2 GM/100 ML FROZ.PIGGY IV ×2 (13:43→22:11)
[2020-07-24] MEDS: TRANEXAMIC ACID 1,000 MG VIAL 1000 MG INJ ×2 (14:19→16:37)
--- NOTE | 2020-07-24 14:29 | SUR.OPER ---
Supine on padded [place] table with bilateral legs secured in padded positioning boots and suspended in positioning spars, operative leg in traction per surgeon. Head on one pillow. Arm on non-operative side secured on padded armboard <90 degrees abduction. Arm on operative side padded and resting across chest then secured with tape over sheet. Padded perineal post in place per surgeon.
[2020-07-24] MEDS: BUPIVACAINE 0.25% W/ EPI 30 ML VIAL 60 ML INJ (14:35)
[2020-07-24] MEDS: BUPIVACAINE LIPOSOME 266 MG/20 ML VIAL INJ (14:37)
[2020-07-24] MEDS: SODIUM CHLORIDE IRRIG SOLUTION 250 ML, POVIDONE-IODINE SPONGE STICKS 1 APPLIC IRR (14:42)
[2020-07-24] MEDS: fentaNYL 100 MCG/2 ML INJ IV (17:13)
[2020-07-24] MEDS: hydrOXYzine 50 MG/ML INJ 25 MG IM (17:30)
[2020-07-24] MEDS: ONDANSETRON 4 MG/2 ML INJ IV (17:31)
[2020-07-24] MEDS: HYDROMORPHONE 2 MG INJ IV (17:31)
[2020-07-24] MEDS: OXYCODONE IR 5 MG TABLET PO (17:53)
[2020-07-24] MEDS: LACTATED RINGERS 1,000 ML 125 ML IV (18:39)
[2020-07-24] MEDS: IBUPROFEN 400 MG TABLET PO ×2 (18:41→22:10)
[2020-07-24] MEDS: ASPIRIN EC 81 MG TABLET PO (21:17)
[2020-07-24] MEDS: ACETAMINOPHEN 325 MG TABLET 650 MG PO (21:17)
[2020-07-24] MEDS: DOCUSATE 100 MG CAPSULE PO (21:17)
--- NOTE | 2020-07-24 22:18 | PC.NURSE ---
A&OX3. 99%RA. pain controlled with 1 tab of oxycodone, tylenol and advil. pt ambulated to the [facility] and was able to urinate. BP low, pt usually runs in low 100's at baseline. encouraged pt to drink more fluids. bed alarm active. SCDs. IVF.
[2020-07-25] VITALS (8 sets, daily range): BP systolic 74–101; BP diastolic 44–56; PULSE 62–97; RESP 16–19; TEMP 36.7–37.2; O2SAT 94–100
[2020-07-25] MEDS: IBUPROFEN 400 MG TABLET PO ×5 (00:32→17:32)
[2020-07-25] MEDS: CEFAZOLIN 2 GM/100 ML FROZ.PIGGY IV (04:59)
--- NOTE | 2020-07-25 06:04 | PC.NURSE ---
caustic cresylate shift superintendent note: Patient slept well throughout shift, with minimal pain reported. Patient medicated with only scheduled Ibuprofen with good pain control. Patient has ambulated to bedside commode and has voided well. Patient has remained on RA, sats 99%. VSS, patient with SBPs in low 100's, but patient states that is normal for her. She has remained AOx4. Surgical site remains C/D/I with aquacell dressing in place. Patient with hip precautions implemented. IV fluids d/c this AM per physician order - pt eating and drinking well. Patient currently sleeping, no distress noted. Will continue to monitor.
[2020-07-25 06:45] LABS: Hematocrit 30.8 % (36-46); Hemoglobin 10.3 g/dL (12.0-16.0)
--- NOTE | 2020-07-25 08:01 | PM.PN.1 ---
Subjective Subjective Date Patient Seen: 07/25/20 Time Patient Seen: 08:01 Interval history: She is doing well after her left anterior total hip arthroplasty. She notes that her pain is adequately controlled. She has been up out of bed to the chair and voided without difficulty. She does have some moderate thigh pain. Exam Vital Signs (past 8 hours): - 07/25/20 03:37 Temperature 98.2 F Pulse Rate 65 Respiratory Rate 16 Blood Pressure 101/52 L Pulse Oximetry 96 Oxygen Delivery Method Room Air Oxygen Flow Rate 0 Narrative Exam Narrative: Dressings dry. There is minimal swelling in the thigh, she is neurologically intact distally she has minimal pain with gentle range of motion in her hip. Calfs are soft bilateral Objective Labs Result Diagrams: 07/25/20 06:03 Labs: Laboratory Results - last 24 hr 07/25/20 06:03 Hgb 10.3 L Hct 30.8 L Assessment & Plan Assessment & Plan narrative: Doing well status post left total hip arthroplasty. Plan ambulate with therapy in the ledesma she can be weight-bearing as tolerated on the left leg and anticipate discharge to home today as long as she does well with therapy. She will use oxycodone for postoperative pain control in addition to her Tylenol and ibuprofen. Aspirin for DVT prophylaxis.
[2020-07-25] MEDS: DOCUSATE 100 MG CAPSULE PO (10:13)
[2020-07-25] MEDS: ACETAMINOPHEN 325 MG TABLET 650 MG PO ×2 (10:14→14:29)
[2020-07-25] MEDS: ASPIRIN EC 81 MG TABLET PO (10:14)
[2020-07-25] MEDS: SODIUM CHLORIDE 0.9% 1,000 ML 125 ML IV (10:15)
[2020-07-25] MEDS: SODIUM CHLORIDE 0.9% 500 ML 1000 ML IV (10:15)
--- NOTE | 2020-07-25 12:05 | PT.IIE ---
Current Diagnoses Bilateral primary osteoarthritis of hip (07/24/20) Surgery Performed Operation Date: 07/24/20 13:45 Actual Procedures p Total Hip Arthroplasty/Anterior Approach(Left) - Kiana Morales MD Surgical History (Last Updated 07/17/20 @ 13:07 by Maritza Mcgowan, RN) History of partial hysterectomy (Acute) History of total right hip arthroplasty (Acute 12/15/19) Hx of arthroscopy of right knee (Acute) Hx of dilation and curettage (Acute) Hx of oral surgery (Acute) Medical History (Last Updated 12/06/19 @ 10:17 by Maritza Mcgowan RN) Chronic pain (Acute) Hypotension (Acute) Incontinence in female (Acute) Incontinence of bowel (Acute ~2018) Open fracture of left femur (Acute ~1969) Psoriasis (Acute) Skipped beats (Acute) TMJ (temporomandibular joint syndrome) (Acute) Trigger finger of right hand (Acute) Physical Therapy Inpatient Evaluation/Re-Eval M1 PT/OT-IP Prior Functional Status Start: 07/25/20 08:16 Freq: NEEDED Status: Active Protocol: Document 07/25/20 11:24 (Rec: 07/25/20 12:05 [id number]) Medical Review Prior Functional Status Medical History Reviewed Yes Diet/Fluid Consistency Regular Communication no deficits noted Mobility and Gait pt uses SPC most of the time d /t R hip pain and unable to go for long walks. Difficulty bending over and climb stairs with step to pattern. Activities of Daily Living and IADL's independent for ADLs and IADLs . Use cart for support during gorcery shop. She also drives independently. Social History Household Members none Living Arrangements House Number of Floors (Floors) 3 or More Floors Number of Stairs To Enter/Railing? 3 RUPESH w/o rails, 15 steps to 2nd floor with R railing pt can stay on mainfloor in the guest room with bathroom and bedroom acces. Home Environment Standard Height Toilet,Walk in Shower Home Equipment Front Wheel Walker,Straight Cane,Raised Toilet Seat w/ Armrests,Carry Out Clerk And Shelf Stocker,Grab Bars Near Toilet Employment Status Retired Additional Social History Comment Pt lives alone in [facility] but has property mate that comes in and check on her daily. She stated he will be very helpful to assist . Pt also managed to have friend Bell to stay with her as long as she needed. M2 PT-IP Current Condition Start: 07/25/20 08:16 Freq: NEEDED Status: Active Protocol: Document 07/25/20 11:24 HH (Rec: 07/25/20 12:05 [id number]) Physical Therapy Current Condition Current Condition Evaluation Date 07/25/20 Treatment Diagnosis L SABA (anterior approach), difficulty in walking Onset Date 07/24/20 Precautions Anterior Hip Precautions No Hip Extension,No Hip External Rotation Weight Bearing Status Weight Bearing Status Weight Bear as Tolerated M3 PT-IP Subjective Start: 07/25/20 08:16 Freq: NEEDED Status: Active Protocol: Document 07/25/20 11:24 HH (Rec: 07/25/20 12:05 [id number]) Subjective Physical Therapy Visit Type Type Initial Evaluation Visit Start Time 09:00 Visit Stop Time 09:41 Total Visit Minutes 41 Notes co-tx with SPT Andrew Naqvi. Number of APPLICATIONS PACKAGER Visits 0 Physical Therapy Visit Comments Patient Comments I want to try getting up Patient Goals To regain her mobility and return home. Therapy Pain Assessment Pain When Pain Assessed During Mobility Pain Present Pain Present Pain Reported Location Lf hip Intensity 5 Scale Used Numeric (0 - 10) Description Aching,With Movement Pain Management Techniques Timing of Activity with Medications M4 PT-IP Mobility and Gait Start: 07/25/20 08:16 Freq: NEEDED Status: Active Protocol: Document 07/25/20 11:24 HH (Rec: 07/25/20 12:05 [id number]) PT-Bed Mobility Assessment Supine to Sit Supine to Sit Standby Assistance Sit to Supine Sit to Supine Standby Assistance Scooting Scooting to Edge of Bed Standby Assistance PT-Transfer Assessment Sit to and From Stand Sit to and from Stand Contact Guard Assistance Equipment Transfer Assistive Device Gait Belt,Front Wheeled Walker Orthotic/Prosthetic Devices or Brace: No Transfers Transfer Destination Bed,Chair Transfer Technique Stand Step Pivot Transfer Ability Level of Assist Contact Guard Assistance,Use of Upper Extremities Comments Mobility Comments Pt was up in bed upon PT and SPT arrival. No c/o and agreed to mobilize with PT. She initially completed supine to long sit SBA and pivoted to her R side EOB. Pt was somewhat impulsive and needed cues to remind her the goal of this session and POC. Pt then stood up by pushing off through beds with CGA. Proceeded to amb with FWW with WC follow and pt started to with step to pattern for first 80 ft and progressed to step over pattern. Pt amb up to end of warden RN station but reports of increased dizziness and lightheadedness. Assisted pt to sit down on W/C and her symptoms did not resolve after 5 mins. Pt then progressed to have unvoluntary tremors who appeared to be very pale. She c/o Im about to faint. This PT immediately WC her back to her room and completed a stand pivot transfer from to bed. She completed sit to supine with CGA and trendelenberg protocol initiated. Her BP was 75/46 initially , 84/44 , 76/51 and 76/47 at 2 min interval. Pt reports she felt normal after 8 minutes but BP remains low. Notified RN Kim and Handed off pt to her for continuous monitoring. Gait Assessment Gait Gait Assistance Required: Contact Guard Assist Distance (Feet) 150 Able to Maintain Weight Bearing Status Yes During Gait Assistive Devices Assistive Device Gait Belt,Front Wheeled Walker Orthotic/Prosthetic Devices or Brace: No Gait Deviations General Gait Pattern Antalgic,Decreased Stride Length,Decreased Feet Clearance,Step-to Gait Factors Limiting Gait Function Factors Limiting Gait Function Decreased Activity Tolerance, Decreased Strength,Limited Range of Motion,Pain,Poor Balance,Poor Safety Awareness Comments Gait Comments Pt amb with an antalgic gait and a mild steppage gait since pt felt RLE is shorter. She amb with step to pattern iniitially and WB through RLE and UEs but progressed to step over pattern. Stair Climbing Assessment Comments Stair Climbing Comments unable to assess PT-Balance Assessment Sitting Balance and Reactions Static Sitting Balance Ability Normal Dynamic Sitting Balance Ability Normal Standing Balance and Reactions Static Standing Balance Ability Good Dynamic Standing Balance Ability Fair Device Used FWW M5 PT-IP Objective Assessments Start: 07/25/20 08:16 Freq: NEEDED Status: Active Protocol: Document 07/25/20 11:24 (Rec: 07/25/20 12:05 [id number]) Orientation Orientation/Cognition Level of Alertness Alert Orientation Name,Age,Birthday,Month,Date, Year,Day of Week,Place, Situation Language Function Ability No Deficits Noted Safety Awareness Decreased Safety Awareness Memory Description No Deficits Noted Gross Range of Motion Upper Extremity ROM Assessment Within Functional Limits Lower Extremity ROM Assessment Left Impaired Strength Upper Extremity Strength Assessment Within Functional Limits Lower Extremity Strength Assessment Left Impaired Hip 3+/5 Knee 4/5 Sensation Assessment Sensation Gross Sensation WNL M6 PT-IP Treatment Start: 07/25/20 08:16 Freq: NEEDED Status: Active Protocol: Document 07/25/20 11:24 HH (Rec: 07/25/20 12:05 [id number]) Physical Therapy Treatment Exercises Exercises Ankle Pumps,Gluteal Sets,Quad Sets Education Education Provided Precautions,Weight Bearing Status,Post-Op Packet,Safety M7 PT-IP Assessment and Plan Start: 07/25/20 08:16 Freq: NEEDED Status: Active Protocol: Document 07/25/20 11:24 HH (Rec: 07/25/20 12:05 [id number]) PT Summary Assessment and Plan Potential Rehabilitation Potential Good Status of Condition at Evaluation Evolving Summary Impairments Pain,ROM,Strength,Balance,Bed Mobility,Transfers,Gait, Activity Tolerance Assessment Summary This is a 70 yo female s/p POD1 L SABA with anterior approach. PLOF= independent with SPC who also lives alone. Upon assessment, pt was somewhat unsafe since she was quite impulsive and needed reminders for the goal of this session and POC. She also experienced orthostatic hypotension 70s/40s after amb 150 ft with FWW. Pt was symptomatic with dizziness, fainting, sweating but resolved after transferring back to bed but BP remained low. Will cont monitor her progress and also requested to have her friend Bell (CG) to conduct a CG training session this afternoon. Expect pt to be dc home safely with friend' s assistance and outpatient PT . Goals Bed Mobility Goal Standby Assistance Transfer Goal Contact Guard Assistance,Front Wheeled Walker Gait Goal Contact Guard Assistance,Front Wheel Walker Gait Distance 150 Other Goals 3 RUPESH without rails and SPC on R, CHIEF HOSPITAL ADMINISTRATOR on L with CG Days to Meet Goals 3 Frequency of Treatment Frequency Of Treatment Twice a Day Treatment Plan Physical Therapy Treatment Plan Bed Mobility Training,Transfer Training,Gait Training, Therapeutic Exercise,Balance Retraining,Post Op Education, Discharge Planning,Hot or Cold Pack,Neuromuscular Re-ed Other Recommendations and Next Treatment check vitals Focus review precautions CG training Recommendations To Nursing Amount of Assist Needed 1 Person Assist Discharge Recommendations PT Discharge Recommendations Home with Assistance, Outpatient PT Transportation Needs at Discharge Private Vehicle
--- NOTE | 2020-07-25 12:06 | CM.DANOTE ---
Patient is a 70 year old female who was admitted on 07/24/20 for Hip Bilat Osteo. Pt has [facility] and [employer] for insurance and her PCP is Dr. Hernan Wiggins. EMR was reviewed. Per Ortho MD, pt still has some pain but has voided independently and will work with PT and if cleared then she can d/c home later today. Per RN, pt has been eating and drinking well today. Per PT, pt seems to be ambulating well but had significant drop in BP which impacted her ability to work more with PT and they will resume therapy after lunch with possible CG training with friend when bedside later today. If BP is stable, recommending safe d/c home with friend assist and outpt PT. SW met bedside with patient and explained role and she confirms that she lives in [facility] alone and is active and independent at baseline. Pt drives but also has many very supportive friends locally who can assist when needed. Pt denies any hx of HH or SNF and states her DPOA is her friend Roseanna although she is still working to complete the DPOA pwk. Pt states her adult Dtr recently came to visit and is supportive but does not live locally but pt has a male jewels who rents her Mother inlaw suite and willing to assist if needed but pt has 2 other friends who plan to stay with pt at d/c to help for as long as needed. Pt does not anticipate any needs at d/c and states her local friend in [place] has offered to provide transport home to [place] at d/c whether today or tomorrow. Plan: SW to follow for afternoon PT session to determine if bp stable for d/c home today via friend POV vs tomorrow and any further identified discharge planning needs. JANIE Spence Discharge Planning/Care Management CM Discharge Assessment Start: 07/25/20 12:04 Freq: Status: Active Protocol: Document 07/25/20 12:04 BF (Rec: 07/25/20 12:06 [id number]) Discharge Planning Assessment Assigned Fish Pitcher JANIE Moore DPOA/Assigned Designee Name Roseanna Advance Directives? Yes: Currently working on Advance Directives on File No History Provided By Patient,Medical Record Has Patient been admitted in last 30 No days? Prior Living Arrangements House Household Members none Type of transporation used prior to Drives own vehicle admit Independent with ADL's Yes Is patient alert and oriented? Yes Caregiver for Another No Patient/Family Preference OP PT Therapy Barriers to Discharge No Discharge Plan Home Community Services Physical Therapy Transportation Arrangement Local friend will transport pt home at d/c Referrals Initiated None needed Whiteboard Updated in Patient Room with Yes name and ext. # of Fish Pitcher Review Status In Process Please Provide Date Initial DC 07/25/20 Assessment Was Performed Next Review Type Continued Stay Review Pre-Anesthesia Assessment Start: 07/17/20 12:46 Freq: Status: Complete Protocol: Document 07/17/20 12:46 CAB (Rec: 07/17/20 13:20 CAB [id number]) Pre-Anesthesia Assessment PAC Comment Pt has an allergy to the adhesive on the surgical drape cloths, states Dr. Morales is aware. I spoke with Selena and she states that Dr. Morales would need to set up a different draping dos. I notified Juli to add to surgical comments for this patient. Preferred Name Garrick Patient Information Reviewed Via Chart Review,Phone Assessment Assessment Completed With Patient Comment Pre-op labs/EKG, COVID screen not identified Primary Care Provider Aarti Seen Specialist in Last 12 Months Yes Specialist Seen Orthopedist,Manager Professional Development Primary Language [place]ese Preferred Language [place]ese Auto Transport Driver Required No Height 167.64 cm Weight 67.132 kg Body Mass Index (BMI) 23.8 Hearing Ability Normal Visual Assist Contacts,Glasses Dentition Type Dental Implants Barriers to Learning None Other Aids No Hx Anesthesia Reactions Yes: PONV, short term memory issues s/p RT SABA 12/15/19 Hx Family Anesthesia Reaction No Hx Malignant Hyperthermia No Hx Blood Transfusions Yes: s/p femur fx 1970 Hx Blood Transfusion Reaction No Anesthesia Review Requested No alcohol intake current alcohol intake frequency holidays/special occasions only Smoking Status Former smoker Tobacco type cigarettes how long ago did patient quit smoking Quit 1982 Substance Use Type marijuana Pain Present Pain Reported Musculoskeletal Symptoms Abnormal Gait,Back Pain, Difficulty Walking,Joint Pain, Muscle Spasms History of Falling (Recent or History of No ) Patient is completely paralyzed or No completely immobile Mental Status Oriented to own ability Is patient on oxygen? No Does patient have HUYNH/SOB Yes: Pt feels r/t deconditioning Hx Sleep Apnea No Currently Taking a Beta [place] No Can You Climb a Flight of Stairs Without No: Pt feels r/t SOB deconditioning Hx Chest Pain No Hx SOB Yes: Pt feels r/t deconditioning Hx Syncope or Dizziness No Anti-Coagulant Therapy No Has a Front Window Cashier No Cardiac Testing No Hx Pacemaker/ICD No Pacemaker Rep Required? No Cardiac Clearance Received Not Applicable Diet Type At Home Vegetarian dysphagia No: Avoids wheat Gastrointestinal Symptoms Fecal Incontinence Bladder Pattern Incontinent,Urgency Urinary Catheter Present No Hx Urinary Self Catheterization No Diabetes No Patient No Lactating No Hx Drug Resistant Organism No Presence of External or Internal Medical Yes: dental implants, rt hip Devices prosthesis Have you had any close contact with No someone diagnosed with COVID-19? Marital Status Single Lives With none Prior Living Arrangements House Number of Floors (Floors) 3 or More Floors Support System Friend(s) Does the Patient Have Assistance After Yes: Friend will stay w/pt to Surgery assist w/care at DC Patient Discharge Plan Description Return Home Feels Safe in Current Environment Yes Been Physically Hurt or Threatened By a No Person in Current Environment Do you have thoughts of harming yourself None or others? Are you currently considering suicide? No Do you have a plan to hurt yourself or No Plan others? Do You Have Any Spiritual Beliefs That No May Affect Your HC Choices? Do You Have Any Cultural Practices That No May Affect Your HC Choices? Who Can We Speak to About Patient's Care Family, friends Identifying Code for Release of Patient Declines to issue Information Health Care Proxy/Next of Kin Roseanna Miranda (friend) Health Care Proxy Emergency Contact Name Bell (friend) Emergency Contact Advance Directives? Yes: Currently working on Advance Directives on File No Power of Accounting Manager Controller Yes Power of Accounting Manager Controller Name Roseanna Miranda (Friend) Power of Accounting Manager Controller PAC Instructions Do not shave/clip surgical site,Durable medical equipment ,Medications to take/avoid, Nasal antibiotic,No ETOH/ petroleum product on skin DOS, NPO,Pre-surgical wash,Sensory aids,Sturdy shoes/comfortable clothes,Do not bring valuables and remove jewelry
--- NOTE | 2020-07-25 15:22 | PT.IPTN ---
Current Diagnoses Bilateral primary osteoarthritis of hip (07/24/20) Surgery Performed Operation Date: 07/24/20 13:45 Actual Procedures p Total Hip Arthroplasty/Anterior Approach(Left) - Kiana Morales MD Physical Therapy Treatment Note M2 PT-IP Current Condition Start: 07/25/20 08:16 Freq: NEEDED Status: Active Protocol: Document 07/25/20 11:24 HH (Rec: 07/25/20 12:05 [id number]) Physical Therapy Current Condition Current Condition Evaluation Date 07/25/20 Treatment Diagnosis L SABA (anterior approach), difficulty in walking Onset Date 07/24/20 Precautions Anterior Hip Precautions No Hip Extension,No Hip External Rotation Weight Bearing Status Weight Bearing Status Weight Bear as Tolerated M3 PT-IP Subjective Start: 07/25/20 08:16 Freq: NEEDED Status: Active Protocol: Document 07/25/20 15:03 HH (Rec: 07/25/20 15:22 [id number]) Subjective Physical Therapy Visit Type Type Treatment Note Visit Start Time 14:23 Visit Stop Time 14:50 Total Visit Minutes 27 Notes co-tx with SPT Andrew Naqvi. Friend Bell at bedside attended session. Number of BIBLE WORKER Visits 0 Physical Therapy Visit Comments Patient Comments I feel better now. Therapy Pain Assessment Pain When Pain Assessed During Mobility Pain Present Pain Present Pain Reported Location Lf hip Intensity 5 Scale Used Numeric (0 - 10) Description Aching,With Movement Pain Management Techniques Timing of Activity with Medications M4 PT-IP Mobility and Gait Start: 07/25/20 08:16 Freq: NEEDED Status: Active Protocol: Document 07/25/20 15:03 HH (Rec: 07/25/20 15:22 [id number]) PT-Bed Mobility Assessment Supine to Sit Supine to Sit Standby Assistance Sit to Supine Sit to Supine Standby Assistance Scooting Scooting to Edge of Bed Standby Assistance PT-Transfer Assessment Sit to and From Stand Sit to and from Stand Standby Assistance,Use of Upper Extremities Equipment Transfer Assistive Device Gait Belt,Front Wheeled Walker Orthotic/Prosthetic Devices or Brace: No Transfers Transfer Destination Bed,Chair Transfer Technique Stand Step Pivot Transfer Ability Level of Assist Contact Guard Assistance,Use of Upper Extremities Comments Mobility Comments Pt was in bed upon SPT and PT arrival. Friend Bell at bedside for CG training. BP in supine = 82/45 but asymptomatic. She initially sat up in bed into long sit and pivoted herself to R side EOB by using UEs to lift LLE. BP 86/44 in seated. Pt denies discomfort and proceed to amb. She stood up with B UEs pushed off from walker the amb with PT CGA. She amb approx [address] and showed good pace. Pt then reported slight fatigue and WC was provided. Pt was w/c to end of hallway for stair climbing. She completed 1 set of 3 steps with B KNITTING MACHINE FIXER HEAD from CG and this PT. Pt led with RLE to ascend and LLE to descend who did need cues to pace herself and maintain good eccentric control. Pt and CG both stated feeling confident to complete stair climbing at home. W/c pt back to her room and BP at 87/42 but asymptomatic. Call light placed within reach. Gait Assessment Gait Gait Assistance Required: Contact Guard Assist Distance (Feet) 100 Able to Maintain Weight Bearing Status Yes During Gait Assistive Devices Assistive Device Gait Belt,Front Wheeled Walker Orthotic/Prosthetic Devices or Brace: No Gait Deviations General Gait Pattern Antalgic,Decreased Stride Length,Decreased Feet Clearance,Step-to Gait Factors Limiting Gait Function Factors Limiting Gait Function Decreased Activity Tolerance, Decreased Strength,Limited Range of Motion,Pain,Poor Balance,Poor Safety Awareness Comments Gait Comments see mobility comments Stair Climbing Assessment Evaluation Level of Assist On Stairs Moderate Assistance Devices Stair Climbing Assistive Devices None Technique/Endurance Stair Climbing Direction Ascend and Descend Stair Climbing Technique Step to Step Number of Steps Climbed 3 Stair Climbing Set # Repetitions (reps) 1 Comments Stair Climbing Comments mod KNITTING MACHINE FIXER HEAD from CG and this PT for both ascend and descend. PT-Balance Assessment Sitting Balance and Reactions Static Sitting Balance Ability Normal Dynamic Sitting Balance Ability Normal Standing Balance and Reactions Static Standing Balance Ability Good Dynamic Standing Balance Ability Fair Device Used FWW M5 PT-IP Objective Assessments Start: 07/25/20 08:16 Freq: NEEDED Status: Active Protocol: Document 07/25/20 11:24 (Rec: 07/25/20 12:05 [id number]) Orientation Orientation/Cognition Level of Alertness Alert Orientation Name,Age,Birthday,Month,Date, Year,Day of Week,Place, Situation Language Function Ability No Deficits Noted Safety Awareness Decreased Safety Awareness Memory Description No Deficits Noted Gross Range of Motion Upper Extremity ROM Assessment Within Functional Limits Lower Extremity ROM Assessment Left Impaired Strength Upper Extremity Strength Assessment Within Functional Limits Lower Extremity Strength Assessment Left Impaired Hip 3+/5 Knee 4/5 Sensation Assessment Sensation Gross Sensation WNL M6 PT-IP Treatment Start: 07/25/20 08:16 Freq: NEEDED Status: Active Protocol: Document 07/25/20 11:24 HH (Rec: 07/25/20 12:05 HH [id number]) Physical Therapy Treatment Exercises Exercises Ankle Pumps,Gluteal Sets,Quad Sets Education Education Provided Precautions,Weight Bearing Status,Post-Op Packet,Safety M7 PT-IP Assessment and Plan Start: 07/25/20 08:16 Freq: NEEDED Status: Active Protocol: Document 07/25/20 15:03 HH (Rec: 07/25/20 15:22 [id number]) PT Summary Assessment and Plan Potential Rehabilitation Potential Good Status of Condition at Evaluation Stable Summary Impairments Pain,ROM,Strength,Balance,Bed Mobility,Transfers,Gait, Activity Tolerance Progress Towards Goals Safe For Discharge Assessment Summary CG training with pt's friend Bell conducted. Pt improved with activity tolerance without symptoms although her BP remains 80s/40s pre/post session whose BP baseline is 90s/40s. CG Bell and pt's tenant had been helping her since pt's previous SABA in December. Bell shows good understanding and capability to provide care. Pt is ready to be d/c home with their assistance and outpatient PT to improve her mobility and strength. Frequency of Treatment Frequency Of Treatment Discharge Recommendations To Nursing Amount of Assist Needed 1 Person Assist Discharge Recommendations PT Discharge Recommendations Home with Assistance, Outpatient PT Transportation Needs at Discharge Private Vehicle
--- NOTE | 2020-07-25 15:28 | PC.NURSE ---
Blood pressure taken at 1525, left arm 81/56,pulse of 73 and left arm 81/47 pulse of 71. Both sitting position,RN notified.
--- NOTE | 2020-07-25 18:46 | PC.NURSE ---
BP low, but asymptomatic. baseline blood pressure is usually in 90's. pt has been getting up and going to the bathroom. voiding without difficulty. pt drinking lot of water. notified Dr. Morales and she approved her discharge. gave discharge instructions to patient. IV removed
== END 2020-07-25 18:48 | disposition home or self-care (01) ==
LOC: OR 12:14 → AC 18:28
PROVIDERS: PCP Family Medicine; Referring Provider Orthopaedic Surgery; Visit Provider Orthopaedic Surgery
PROC: (CPT 27130; principal; 2020-07-24 13:45)
DX: M16.12 Unilateral primary osteoarthritis, left hip (principal); M81.0 Age-related osteoporosis without current pathological fracture
CPT/HCPCS: 27130; 36415; 73502; 73503; 76000; 85014; 85018; 97116; 97161; 97530; C1776; C9290; J0171; J0690; J1100; J1170; J2250; J2405; J2704; J3010; J3410